=== PATIENT | female | born 1985 | race Caucasian/White ===

== ENCOUNTER 2016-04-03 14:08 | Outpatient (CLI) | payer OTHER | END 2016-04-03 14:09 | disposition home or self-care (01) | DX: Z36 Encounter for antenatal screening of mother (principal) ==

== ENCOUNTER 2016-05-07 22:50 | Outpatient (CLI) | payer OTHER | END 2016-05-07 23:30 | disposition home or self-care (01) | DX: O36.8130 Decreased fetal movements, third trimester, not applicable or unspecified (principal); Z3A.30 30 weeks gestation of pregnancy ==

== ENCOUNTER 2016-06-11 22:16 | Outpatient (CLI) | payer OTHER ==
[2016-06-11] MEDS ORDERED: TERBUTALINE 1 MG/ML VIAL SUBQ SCH (23:00)
[2016-06-11] MEDS ORDERED: TERBUTALINE 1 MG/ML VIAL SUBQ ONE (23:00)
[2016-06-12] MEDS ORDERED: TERBUTALINE 1 MG/ML VIAL SUBQ ONE (01:00)
[2016-06-12] MEDS ORDERED: NIFEdipine ER 90 MG TABLET PO ONE (01:00)
== END 2016-06-12 02:25 | disposition home or self-care (01) ==
DX: O47.00 False labor before 37 completed weeks of gestation, unspecified trimester (principal); Z3A.35 35 weeks gestation of pregnancy
CPT/HCPCS: 81001; 87797; 96372; 99213; A9270

== ENCOUNTER 2016-06-16 15:05 | Outpatient (CLI) | payer OTHER | END 2016-06-16 18:20 | disposition home or self-care (01) | DX: O10.913 Unspecified pre-existing hypertension complicating pregnancy, third trimester (principal); Z3A.36 36 weeks gestation of pregnancy ==

== ENCOUNTER 2016-06-17 08:00 | Outpatient (CLI) | payer OTHER | END 2016-06-17 23:59 | disposition home or self-care (01) | LOC: LAB.R 08:00 | PROVIDERS: ATTEND Obstetrics & Gynecology | DX: Z3A.36 36 weeks gestation of pregnancy (principal) | CPT/HCPCS: 82570; 84156 ==

== ENCOUNTER 2016-06-18 06:13 | Outpatient (CLI) | payer OTHER ==
[2016-06-18] MEDS ORDERED: ACETAMINOPHEN 500 MG TABLET PO PRN (09:30)
[2016-06-18] MEDS ORDERED: ONDANSETRON ODT 4 MG TABLET TL PRN (10:09)
== END 2016-06-18 14:45 | disposition home or self-care (01) ==
DX: O99.89 Other specified diseases and conditions complicating pregnancy, childbirth and the puerperium (principal); R10.9 Unspecified abdominal pain; M54.9 Dorsalgia, unspecified; Z3A.36 36 weeks gestation of pregnancy
CPT/HCPCS: 36415; 76705; 80053; 83615; 84450; 84550; 85025; 85384; 99214; A9270; Q0162

== ENCOUNTER 2016-06-20 13:57 | Outpatient (CLI) | payer OTHER | END 2016-06-20 14:50 | disposition home or self-care (01) | DX: O16.3 Unspecified maternal hypertension, third trimester (principal); Z3A.36 36 weeks gestation of pregnancy ==

== ENCOUNTER 2016-06-27 14:05 | Inpatient (IN) | payer OTHER ==
[2016-06-27 14:41] LABS: BASOPHILS % (AUTO) 0.2 %; EOSINOPHILS % (AUTO) 0.2 %; HCT - HEMATOCRIT 36.9 % (37.0-47.0); HGB - HEMOGLOBIN 12.5 g/dL (12.0-16.0); LYMPHOCYTES # (AUTO) 1.8 10^3/uL (1.5-3.5); LYMPHOCYTES % (AUTO) 13.5 %; MEAN CORPUSCULAR HEMOGLOBIN 28.7 pg (27.0-31.0); MEAN CORPUSCULAR VOLUME 84.4 fL (81.0-99.0); MEAN PLATELET VOLUME 8.5 fL (7.9-10.8); MONOCYTES # (AUTO) 0.7 10^3/uL (0.0-1.0); MONOCYTES % (AUTO) 5.6 %; NEUTROPHILS # (AUTO) 10.8 10^3/uL (1.5-6.6); NEUTROPHILS % (AUTO) 80.5 %; RED BLOOD COUNT 4.37 10^6/uL (4.20-5.40); RED CELL DISTRIBUTION WIDTH 16.3 % (12.0-15.0); UNCORRECTED WHITE BLOOD COUNT 13.4 x10^3/uL; WHITE BLOOD COUNT 13.4 x10^3/uL (4.8-10.8)
[2016-06-27 14:56] LABS: URIC ACID 6.4 mg/dL (2.6-7.2)
[2016-06-27 15:29] LABS: BILIRUBIN,URINE NEGATIVE (NEGATIVE); PH,URINE 6.5 PH (5.0-7.5)
[2016-06-27 15:33] LABS: UA w/ MICROSCOPIC CHARGE YES
[2016-06-27 15:39] LABS: UR CULTURE IF IND NOT INDICATED
[2016-06-27] MEDS ORDERED: ACETAMINOPHEN 325 MG TABLET PO PRN (16:42)
[2016-06-27] MEDS ORDERED: SODIUM CHLORIDE FLUSH 0.9% 10 ML SYRINGE IVP PRN (16:42)
[2016-06-27] MEDS ORDERED: ONDANSETRON 4 MG/2 ML VIAL IVP PRN (16:42)
[2016-06-27] MEDS ORDERED: fentaNYL 100 MCG/2 ML VIAL IVP PRN (16:42)
[2016-06-27] MEDS: LACTATED RINGERS 1,000 ML IV SCH (18:02)
[2016-06-27] MEDS: OXYTOCIN/LACTATED RINGERS 250 ML IV SCH (18:15)
--- NOTE | 2016-06-27 19:19 | HISTORY & PHYSICAL EXAMINATION ---
DATE OF ADMISSION: 06/27/2016 DIAGNOSES: 1. Gestational hypertension; 2. Term (37 weeks 6 days); 3. History of anxiety disorder and borderline personality disorder. HISTORY: The patient is a 30-year-old primigravida at 37 weeks and 6 days gestation based on early ultrasound, who reported headaches, visual changes and increasing edema at her routine clinic appointment with Dr. Taylor. At the time of our clinic evaluation her blood pressure was 140/100 on 2 occasions. She was sent to Labor and Delivery for continued evaluation and her blood pressures remained over 140/90. She reports a frontal headache that is not relieved by Tylenol, right upper quadrant and mid epigastric tenderness, and increasing edema over the last week. She has no recent fevers or illness. There is no history of chronic hypertension and her baseline blood pressure was 122/78. Baseline labs found uric acid mildly elevated for at 6.4 and an elevated urine creatinine protein ratio of 0.3. Baseline labs: Group B strep status negative. Glucose challenge normal at 125. PAST MEDICAL HISTORY: 1. Anxiety disorder. 2. Borderline personality disorder. 3. Distant abnormal Pap result classification uncertain. ALLERGIES: NO KNOWN DRUG ALLERGIES. MEDICATIONS: vitamins with iron. GENETIC/FAMILY HISTORY: No congenital anomalies or inheritable diseases noted. Positive for hypertension, preeclampsia, stroke and type 1 diabetes. SOCIAL HISTORY: . Denies drug, tobacco or alcohol use. REVIEW OF SYSTEMS: CONSTITUTIONAL: The patient reports malaise, no fevers, chills. HEENT: Facial swelling. CARDIOVASCULAR: Negative. PULMONARY: Negative. GI: Negative. NEUROLOGICAL: Visual changes including blurriness. Motor, sensory reported to be intact. SKIN: Negative. PHYSICAL EXAMINATION: GENERAL: The patient lying comfortably in bed in a darkened room. Alert, cooperative. VITAL SIGNS: Temperature 98.1, pulse 101, blood pressure 142/95, respirations 18 , pulse oximetry 98. HEENT: EOMI. Normal; Facial swelling; Supple neck; No thyromegaly; Moist mucous membranes. CARDIAC: Regular. No murmur, no gallop. PULMONARY: No wheezes. LUNGS: Clear to auscultation. ABDOMEN: Generous liver span at or about 10 cm with liver tenderness noted, epigastric tenderness noted. No CVA tenderness or suprapubic tenderness. UTERUS: Appropriate for 37 weeks, approximate weight 6-1/2 to 7 pounds, vertex presentation, a contractile. EXTERNAL GENITALIA: Normal appearance. VAGINA: No blood or discharge Cervix 3 cm., somewhat posterior. Bag of mario intact. heart tracing is category 1, occasional contractions, baseline 130s with accelerations, no worrisome decelerations. Moderate variability. EXTREMITIES: 2+ tibial & finger edema ASSESSMENT: This is a term at nearly 38 weeks with symptoms indicative of gestational hypertension with the beginnings of end organ symptoms including headache, visual changes and liver tenderness. At the current time, her blood pressures do not justify mag sulfate prophylaxis. Induction is indicated. Given her Farris score, Pitocin is a suitable induction modality. PLAN: Discussed gestational hypertension, its natural history and current indications for induction. Risks and benefits were explained to the patient, and she understands that induction carries a slight increase in risk, possibility of failure, possibility of initiating distress. She also understands that gestational hypertension is an unremitting process and can worsen leading to seizures, stroke and poor outcome. The patient consents to Pitocin induction. Epidural will be offered as she approaches the active phase. JOB #: [id number] EXT JOB #:[id number] OUSMANE
[2016-06-28] MEDS: LACTATED RINGERS 1,000 ML IV SCH ×3 (01:53→10:21)
[2016-06-28 02:14] LABS: BASOPHILS % (AUTO) 0.4 %; EOSINOPHILS # (AUTO) 0.1 10^3/uL (0.0-0.7); EOSINOPHILS % (AUTO) 0.7 %; HCT - HEMATOCRIT 36.6 % (37.0-47.0); HGB - HEMOGLOBIN 12.6 g/dL (12.0-16.0); LYMPHOCYTES # (AUTO) 2.2 10^3/uL (1.5-3.5); LYMPHOCYTES % (AUTO) 20.2 %; MEAN CORPUSCULAR HGB CONC 34.5 g/dL (32.0-36.0); MEAN PLATELET VOLUME 8.6 fL (7.9-10.8); MONOCYTES # (AUTO) 0.9 10^3/uL (0.0-1.0); MONOCYTES % (AUTO) 8.1 %; NEUTROPHILS # (AUTO) 7.8 10^3/uL (1.5-6.6); NEUTROPHILS % (AUTO) 70.6 %; RED BLOOD COUNT 4.36 10^6/uL (4.20-5.40); RED CELL DISTRIBUTION WIDTH 16.7 % (12.0-15.0)
[2016-06-28 02:28] LABS: CREATININE 0.6 mg/dL (0.4-1.0); URIC ACID 6.6 mg/dL (2.6-7.2)
--- NOTE | 2016-06-28 05:00 | PROVIDER PROGRESS NOTE ---
Labor Progress Note - Instructions [place]/Slash: -Left hand click circles element as positive or present. -Right hand click slashes element as negative or not present. - Uterine Monitoring Uterine Monitoring Mode: positive: External toco Contraction Frequency (min/apart): q 4 min Contraction Intensity: positive: Moderate Uterine Resting Tone: positive: Soft - Monitoring Monitor Mode: positive: External ultrasound Heart Rate Baseline: 135-140 Heart Rate Variability: positive: Moderate (6-25 bmp) Accelerations: positive: Present, 15x15 Decelerations: positive: None Strip Review: positive: Category I - Vaginal Exam Dilation (in cm): 5 Effacement (%): 100% Station: positive: 0 Cervical Position: positive: Midposition - Labor Progress Note Labor Progress Note/Additional Text: Patient progressing to active phase and uncomfortable now. Epidural requested and she wants to "labor down." I explained that epidural does not provide absolute pain relief and she will have pain during pushing. Her PIH labs and B/ P remain stable.
[2016-06-28] MEDS ORDERED: fent/BUPIV 2 MCG/0.125% 250 ML EP ONE (05:01)
[2016-06-28] MEDS ORDERED: fentaNYL 100 MCG/2 ML VIAL ONE (05:48)
--- NOTE | 2016-06-28 09:10 | PROVIDER PROGRESS NOTE ---
Labor Progress Note - Instructions [place]/Slash: -Left hand click circles element as positive or present. -Right hand click slashes element as negative or not present. - Uterine Monitoring Uterine Monitoring Mode: positive: External toco Contraction Frequency (min/apart): q 3 min Contraction Intensity: positive: Moderate Uterine Resting Tone: positive: Soft - Monitoring Monitor Mode: positive: External ultrasound Heart Rate Variability: positive: Moderate (6-25 bmp) Accelerations: positive: Present, 15x15 Decelerations: positive: None Strip Review: positive: Category I - Vaginal Exam Dilation (in cm): 6 Station: positive: 0 Cervical Position: positive: Midposition (B/P stable; Epidural effective)
[2016-06-28] MEDS: OXYTOCIN/LACTATED RINGERS 250 ML IV SCH (10:22)
[2016-06-28] MEDS: SODIUM CHLORIDE FLUSH 0.9% 10 ML SYRINGE IVP SCH ×2 (10:24→10:25)
--- NOTE | 2016-06-28 11:39 | PROVIDER PROGRESS NOTE ---
Labor Progress Note - Instructions [place]/Slash: -Left hand click circles element as positive or present. -Right hand click slashes element as negative or not present. - Uterine Monitoring Uterine Monitoring Mode: positive: External toco Contraction Frequency (min/apart): q 3 min Contraction Intensity: positive: Moderate Uterine Resting Tone: positive: Soft - Monitoring Monitor Mode: positive: External ultrasound Heart Rate Baseline: 130 Heart Rate Variability: positive: Moderate (6-25 bmp) Accelerations: positive: Present, 15x15 Decelerations: positive: None Strip Review: positive: Category I - Vaginal Exam Dilation (in cm): 8 Station: positive: 1, 2 Cervical Position: positive: Anterior (Progressing)
[2016-06-28] MEDS ORDERED: MINERAL OIL LIGHT 10 ML MC ONE (15:17)
[2016-06-28] MEDS ORDERED: miSOPROStol 200 MCG TABLET ONE (15:17)
[2016-06-28] MEDS ORDERED: LIDOCAINE 1% 50 ML MDV ONE (15:17)
--- NOTE | 2016-06-28 16:06 | PROVIDER PROGRESS NOTE ---
Labor Progress Note - Instructions [place]/Slash: -Left hand click circles element as positive or present. -Right hand click slashes element as negative or not present. - Uterine Monitoring Uterine Monitoring Mode: positive: External toco Contraction Frequency (min/apart): Q 2.5 min Contraction Intensity: positive: Moderate Uterine Resting Tone: positive: Soft - Monitoring Monitor Mode: positive: External ultrasound Heart Rate Baseline: 135 Heart Rate Variability: positive: Moderate (6-25 bmp) Accelerations: positive: Present, 10x10 (=/32 wks) Decelerations: positive: Variable, Intermittent (<50% x20 min) Strip Review: positive: Category I - Vaginal Exam Dilation (in cm): 10 Effacement (%): 100% Station: positive: 3 Cervical Position: positive: Anterior (Dense Epidural; Will begin pushing)
[2016-06-28] MEDS: OXYTOCIN/LACTATED RINGERS 250 ML IV ONE ×2 (16:52→19:05)
[2016-06-28] MEDS ORDERED: WITCH HAZEL/GLYCERIN 1 EACH MED..PAD TOP PRN (17:02)
[2016-06-28] MEDS ORDERED: diphenhydrAMINE 25 MG CAPSULE PO PRN (17:02)
[2016-06-28] MEDS ORDERED: HYDROCORTISONE/PRAMOXINE 10 GM PR PRN (17:02)
--- NOTE | 2016-06-28 17:10 | DELIVERY NOTE ---
Delivery Note - Instructions [place]/Slash: -Left hand click circles element as positive or present. -Right hand click slashes element as negative or not present. - Labor Labor: positive: Induced by oxytocin - Delivery Method Delivery Method: positive: Spontaneous vaginal delivery - Presentation Presentation: positive: Vertex, Compound (R Arm) - Nuchal Cord Nuchal Cord: positive: None - Anesthetic Anesthetic: positive: Lidocaine - 0.5% plain Volume: positive: 5cc - Amniotic Fluid Description Amniotic Fluid Description: positive: Clear - Laceration Laceration: positive: 2nd degree, Vaginal - Suture Suture Type: positive: Vicryl Suture Size: positive: 3-0 - Delivery Outcome Delivery Outcome: positive: Livebirth - : positive: Placed in direct skin contact with mother, Stimulated, Reva used [place] sex: positive: Female - Cord Cord: positive: 3 vessels - Placenta Placenta: positive: Spontaneous (Grade 2) - Estimated Blood Loss Estimated Blood Loss (in cc): 400 - Post Delivery Events Post Delivery Events: positive: Other (Cytotech 800 mcg w Pitocin & Massage)
[2016-06-28] MEDS ORDERED: LACTATED RINGERS 1,000 ML IV SCH (18:00)
[2016-06-28] MEDS: IBUPROFEN 600 MG TABLET PO SCH (18:16)
[2016-06-28] MEDS: HYDROcod/ACETAM 5/325 MG TABLET PO PRN (18:17)
[2016-06-29 05:58] LABS: BASOPHILS % (AUTO) 0.2 %; EOSINOPHILS # (AUTO) 0.1 10^3/uL (0.0-0.7); EOSINOPHILS % (AUTO) 0.7 %; HCT - HEMATOCRIT 33.2 % (37.0-47.0); LYMPHOCYTES # (AUTO) 2.3 10^3/uL (1.5-3.5); LYMPHOCYTES % (AUTO) 18.7 %; MEAN CORPUSCULAR HEMOGLOBIN 28.4 pg (27.0-31.0); MEAN CORPUSCULAR VOLUME 85.8 fL (81.0-99.0); MEAN PLATELET VOLUME 8.4 fL (7.9-10.8); MONOCYTES % (AUTO) 8.2 %; NEUTROPHILS # (AUTO) 8.9 10^3/uL (1.5-6.6); NEUTROPHILS % (AUTO) 72.2 %; RED BLOOD COUNT 3.87 10^6/uL (4.20-5.40); RED CELL DISTRIBUTION WIDTH 16.4 % (12.0-15.0); UNCORRECTED WHITE BLOOD COUNT 12.3 x10^3/uL; WHITE BLOOD COUNT 12.3 x10^3/uL (4.8-10.8)
--- NOTE | 2016-06-29 06:45 | PROCEDURE REPORT ---
DATE OF PROCEDURE: 06/28/2016 00:00:00 PRE-DELIVERY DIAGNOSES 1. Gestational hypertension. 2. Pitocin induction. 3. Term , 38 weeks 0 days. 4. Maternal Rh neg POST-DELIVERY DIAGNOSES 1. Gestational hypertension. 2. Pitocin induction. 3. Term , 38 weeks 0 days. 4. Right arm compound presentation. 5. Macrosomia 6. Successful vaginal delivery. PROCEDURES: Manually assisted vaginal delivery over an intact perineum, minor midline vaginal laceration (second degree repair). TAB MACHINE OPERATOR: Grover Floyd MD, FACOG, FICS. ANESTHESIA: Joni Boone, certified nurse county or city auditor, epidural. Dr. Floyd, 5 mL of lidocaine 2% local. COMPLICATIONS: None. BLOOD LOSS: 400 mL. FINDINGS: At 1641 hours, a living male was born weighing 9 lbs 10 oz and scoring Apgars of 8/9. There was no congenital anomalies or trauma observed. responded to stimulation. Placenta was spontaneously delivered approximately 5 minutes after. Inspection found it to be a grade 2 and completely intact. Cord configuration was 3-vessel and there was no cord entanglement. At the time of delivery, a right arm compound presentation was discovered. It resolved without difficulty. TECHNIQUE: The patient achieved completion at or about 1400 and was allowed to labor down during most of the afternoon, enjoying a dense epidural. Throughout, heart tracing remained category 1. The patient reported an urge to push and pushed with good effort and well coached by nursing and her . She brought the head to the perineum. The head was atraumatically delivered. There was no nuchal cord and the fetus experienced external rotation clockwise. There was a right hand noted impeding delivery of the shoulders, but this spontaneously resolved. To facilitate shoulder delivery, the hips were flexed, but this was not a true shoulder dystocia. was placed on the maternal abdomen and stimulated. Cord was doubly clamped and transected. Cord blood sample was sent and a loop of cord was saved in case of need for cord pH/gases. The responded well and cord gases were not required. The cervix was intact and for the majority, the vagina was intact. There was 3 cm in length, 1 cm depth midline laceration from the shoulder delivery noted. The external anal sphincter and rectum were not involved. This small rift was closed with a running stitch of 3-0 Vicryl. Shortly after repair of the vaginal laceration, the placenta was delivered intact. Initially there was brisk bleeding, which prompted us to begin uterine massage and Pitocin drip. The bleeding seems slow to quang and 800 mcg of Cytotec was placed per rectum. The uterine interior was examined by palpation. There were no fragments. It was confirmed that the placenta was intact by inspection. Cervix was visualized completely intact as well. The uterus responded well to Cytotec. Mother, father and child all bonded well. At the termination of the procedure, all sponge and needles were accounted for. JOB #: [id number] EXT JOB #:[id number] [place]
[2016-06-29] MEDS: IBUPROFEN 600 MG TABLET PO SCH ×2 (08:44→17:51)
[2016-06-29] MEDS: HYDROcod/ACETAM 5/325 MG TABLET PO PRN ×2 (08:45→17:51)
--- NOTE | 2016-06-29 08:51 | PROVIDER PROGRESS NOTE ---
Subjective - Prog Note Date Prog Note Date: 06/29/16 - Subjective Pt reports feeling: Improved Subjective: Pt feels well but fatigued. Discussed Rh neg blood type and her declining 28w Rhogam. Rh neg. Patient has had SAB prior to 8 wks. Call into lab for explanations of weak Du pos result. Objective - Vital Signs/Intake & Output Vital Signs: Vital Signs x48h Temp Pulse Resp BP 06/29/16 02:00 98.0 F 94 18 128/82 H Intake & Output: Intake & Output 06/26/16 06/27/16 06/28/16 06/29/16 23:59 23:59 23:59 23:59 Intake Total 3398 1000 Output Total 650 1450 1300 Balance -650 1948 -300 - Lab Results Fish Bones: 06/29/16 05:51 06/28/16 02:04 Other Labs: Lab Results x24hrs 06/29/16 06/28/16 Range/Units 05:51 20:38 WBC 12.3 H (4.8-10.8) x10^3/uL RBC 3.87 L (4.20-5.40) 10^6/uL Hgb 11.0 L (12.0-16.0) g/dL Hct 33.2 L (37.0-47.0) % MCV 85.8 (81.0-99.0) fL MCH 28.4 (27.0-31.0) pg MCHC 33.0 (32.0-36.0) g/dL RDW 16.4 H (12.0-15.0) % Plt Count 159 (130-450) 10^3/uL MPV 8.4 (7.9-10.8) fL Neut # 8.9 H (1.5-6.6) 10^3/uL Lymph # 2.3 (1.5-3.5) 10^3/uL Cuming # 1.0 (0.0-1.0) 10^3/uL Eos # 0.1 (0.0-0.7) 10^3/uL Baso # 0.0 (0.0-0.1) 10^3/uL Absolute Nucleated RBC 0.01 x10^3/uL Nucleated RBCs 0.0 /100WBC Blood Type O NEGATIVE Weak D (Du) WEAK-D NEGATIVE Maternal Bleed NEGATIVE (NEGATIVE) Physical Exam - Physical Exam General: positive: No acute distress HEENT: positive: Moist mucous membranes Neck: positive: Supple w/out meningeal sx Cardiac: positive: Regular Rate, Regular Rhythm Abdomen: positive: Normal Bowel sounds Female : positive: Vaginal Discharge (Min rubra by nursing) Extremities: positive: Other (mild pedal edema) Skin: positive: Warm and dry Neurologic: positive: Alert and Oriented X 3, Normal Sensation, Normal Speech Assessment/Plan - Assessment/Plan Assessment: Will verfy lab results then determine if Rhogam should be offered. Rhogam generally has 72 H window. Otherwise BP stable and pt recovering.
[2016-06-30] MEDS: HYDROcod/ACETAM 5/325 MG TABLET PO PRN ×2 (03:43→09:19)
--- NOTE | 2016-06-30 08:20 | Discharge Plan ---
Discharge Plan Disposition: 01 Home, Self Care Condition: Good Diet: Regular Activity Restrictions: No Restrictions Shower Restrictions: No Driving Restrictions: No Weight Bearing: Full Weight Additional Instructions or Follow Up instructions: Review Post Depression; Nursing Instructions No Smoking: If you smoke, Please STOP! Call for help. Follow-up with: Grover Taylor MD [Provider Admit Priv/Credential] -
[2016-06-30] MEDS: IBUPROFEN 600 MG TABLET PO SCH ×6 (09:19→21:15)
[2016-06-30] MEDS ORDERED: SERTRALINE 50 MG TABLET PO SCH (12:00)
--- NOTE | 2016-06-30 12:16 | DISCHARGE SUMMARY ---
DATE OF ADMISSION: 06/27/2016 DATE OF DISCHARGE: FINAL DIAGNOSES 1. Gestational hypertension. 2. Term at 38 weeks 0 days. 3. History of anxiety disorder and depression. 4. Compound right hand presentation. 5. Macrosomic fetus. 6. Induction of labor. PROCEDURE: Manually vacuum-assisted vaginal delivery of a living female . COMPLICATIONS: None. HISTORY: The patient is a 30-year-old primigravida at 37 weeks and 6 days gestation who had frontal headaches, visual changes and increasing edema. Her blood pressure was documented to be over 140/90 on several occasions. Physical examination found some mild liver tenderness, but no elevated liver enzymes. Baseline labs were essentially normal except mildly elevated uric acid of 6.4 and an elevated urine creatinine protein ratio of 0.3. Reference typewritten H and P. The patient was admitted and prepared for induction. Cervix was 3 cm dilated and therefore Pitocin drip was begun and titrated to an effective contraction pattern. On hospital day #2 at roughly 4:30 in the morning, her membranes were artificially ruptured and she was given an epidural. The patient was allowed to labor down and throughout her strip was category 1. Reference multiple progress notes. At 1641 hours on hospital day 2, a living male infant was born weighing 9 pounds 10 ounces scoring Apgars of 8/9. Placenta was delivered intact with 3- vessel cord. There was a minor midline laceration that was repaired with Vicryl and total blood loss was 400. Reference type written delivery note. Post-delivery, the patient did well, recovering self-care and care activities. She put good effort into nursing and became somewhat frustrated when infant did not nurse as well as she expected. She was given intensive nursing education by the labor and delivery staff. We had a discussion about expectations, adjustments to motherhood and depression. The patient admits that she feels vulnerable to depression and would like some help in that regard. We discussed the use of antidepressants, which she has been on in the past. Zoloft 50 mg daily was chosen. will monitor her behavior, as well as the patient is acutely aware of her behavior. She has no current violent ideation. She does see a therapist and is scheduled for a visit on 07/11. FOLLOWUP: The patient will have a followup in [address] Taylor for both a blood pressure check and an assessment of adapting to the stresses of . She will have the routine post-delivery followup in 6 weeks. The patient's intends to take off as much work time as possible to support her in the next 2 weeks. DISCHARGE MEDICATIONS 1. vitamins and iron. 2. Colace. 3. Motrin. 4. Zoloft 50 mg daily. JOB #: [id number] EXT JOB #:[id number] [facility]
[2016-06-30] MEDS ORDERED: RHO(D) IMMUNE GLOBULIN 300 MCG SYRINGE IM SCH (17:00)
[2016-06-30 22:17] VITALS: BP 131/64
--- NOTE | 2016-06-30 22:33 | Labor Flowsheet ---
Labor Flowsheet Datetime Report Generated by CPN: 06/30/2016 22:32 Datetime: 06/30/2016 22:16 VITAL SIGNS NBP Sys/Crystal/Mean (mmHg): 131 : 64 : 81 Pulse: 85 LaborFlag: Labor Datetime: 06/30/2016 07:29 SpO2 (%): 99 Datetime: 06/28/2016 16:41 UTERINE ACTIVITY Monitor Mode: External Frequency (min): 2-3 Quality: Strong Duration (sec): 60-90 Pattern: Normal: <= 5 Contractions in 10 Minutes Resting Tone (Palpate): Relaxed ASSESSMENT A Monitor Mode: External US FHR Baseline Rate : unable to determine baseline. Variability: Moderate 6-25 bpm Comments: Pt pushing at this time. Dr. Floyd present. Baby girl delivered at 1641. Datetime: 06/28/2016 16:30 Accelerations: 15X15 Decelerations: Variable Category: Category II Datetime: 06/28/2016 16:05 STAGE 2 Pushing: Coached on Pushing Pushing Position: Pushing with Contractions; Pushing Lithotomy Datetime: 06/28/2016 16:00 VAGINAL EXAM Dilatation (cm): 10.0 Effacement (%): 100 Station: 3 Exam by: Dr. Floyd Datetime: 06/28/2016 14:20 Vaginal Bleeding: Normal Show Cervix, Consistency: Soft Cervix, Position: Midposition Vaginal Exam Comments: Anterior lip Datetime: 06/28/2016 12:30 Monitor Interventions for FHR: 140 Datetime: 06/28/2016 12:00 FHR Baseline Changes: No Baseline Change Datetime: 06/28/2016 11:30 Stage of : Labor Membrane Status: Ruptured Oxygen Method: Room Air Provider Reviewed Strip: Yes Strip Reviewed by: Dr. Floyd ANESTHESIA Anesthesia Plans: Epidural Anesthesia Interview: E Anesthesia Level Check: T10- Umbilicus Datetime: 06/28/2016 08:30 Patient Position/Activity: Left Tilt I/O Interventions: Clear Liquids Given TEACHING Instructional Method: Verbal Datetime: 06/28/2016 07:30 Respirations: 16 Temperature (C): 36.7 Temperature Route: Oral Pitocin Checklist: At Least 1 Acceleration of 15 bpm x 15 Seconds in 30 Minutes or Adequate Variabi lity; No More than 1 Late Deceleration Occurred in Past 30 Minutes; No More than 2 Variable Decelerat ions > 60 Seconds in Duration and decreasing >60 bpm in 30 minutes; No More than 5 Uterine Contractio ns in 10 Minutes for any 20 Minute Interval; Uterus Palpates Soft between Contractions Plan of Care: Plan of Care Discussed Datetime: 06/28/2016 07:00 PAIN Pain Scale: 0 Pain Coping: Sleeping Datetime: 06/28/2016 06:38 Monitor Interventions for UA: [place] Adjusted Datetime: 06/28/2016 06:01 Pain Relief Measures: Epidural Given MATERNAL ASSESSMENT Level of Consciousness: Fully Conscious Headache: Denies Nausea/Vomiting: Denies RUQ Epigastric Pain: Denies Datetime: 06/28/2016 05:36 Epidural Procedure Other: Pump Started Datetime: 06/28/2016 05:24 Epidural Procedure: Loading Dose Datetime: 06/28/2016 05:22 Epidural Positioning: Sitting Datetime: 06/28/2016 05:15 Patient Care Comments: sitting for epidural Datetime: 06/28/2016 05:11 PROCEDURE TIME OUT Procedure Verify: Correct Patient Identity; Correct Side and Site are Marked; Accurate Procedure Co nsent Form; Agreement on Procedure to be Done; Correct Patient Position; Safety Precautions Based on Patient History or Medication Use Datetime: 06/28/2016 04:45 Pain Presence: Intermittent Pain Type: Contraction Pain Location: Abdomen Membranes Rupture Method: Artificial Amniotic Fluid Color: Clear Amniotic Fluid Amount: Small Amniotic Fluid Odor: Normal COMMUNICATION Communication: Provider at Bedside Datetime: 06/28/2016 04:40 PATIENT CARE IV/Blood Work: IV Bolus Started Datetime: 06/28/2016 04:30 MEDICATIONS Pitocin (milliunits): Increased to @ increased to 20@0430 Datetime: 06/28/2016 02:25 Analgesics/Sedatives: Fentanyl (mcg) @ 50mcg@0225 Datetime: 06/28/2016 02:08 Comfort Measures: Breathing/Relaxation; Coaching Datetime: 06/27/2016 21:50 Communication Comments: Dr. Floyd called in to check on pt. status Datetime: 06/27/2016 20:15 Pain Assessment Comments: resting quietly Datetime: 06/27/2016 19:30 Pain Goal: 5 DTR's/Clonus: DTRs 2+; DTRs 3+; No Clonus Breath Sounds, Left: Clear and Equal Breath Sounds, Right: Clear and Equal Pain Management: IV Narcotics
== END 2016-06-30 22:25 | disposition home or self-care (01) | DRG 774 ==
LOC: WFO 14:05 → OB 14:06 → WFO 16:59 → OB 17:00
PROVIDERS: ADMIT Obstetrics & Gynecology; ATTEND Obstetrics & Gynecology
PROC: 3E033VJ Introduction of Other Hormone into Peripheral Vein, Percutaneous Approach (ICD-10-PCS; 2016-06-27)
PROC: 10E0XZZ Delivery of Products of Conception, External Approach (ICD-10-PCS; principal; 2016-06-28)
PROC: 0KQM0ZZ Repair Perineum Muscle, Open Approach (ICD-10-PCS; 2016-06-28)
PROC: 10907ZC Drainage of Amniotic Fluid, Therapeutic from Products of Conception, Via Natural or Artificial Opening (ICD-10-PCS; 2016-06-28)
DX: O13.4 Gestational [pregnancy-induced] hypertension without significant proteinuria, complicating childbirth (principal); O72.1 Other immediate postpartum hemorrhage; O32.6XX0 Maternal care for compound presentation, not applicable or unspecified; O36.63X0 Maternal care for excessive fetal growth, third trimester, not applicable or unspecified; O70.1 Second degree perineal laceration during delivery; O99.344 Other mental disorders complicating childbirth; F41.9 Anxiety disorder, unspecified; F60.3 Borderline personality disorder; F32.9 Major depressive disorder, single episode, unspecified; O26.893 Other specified pregnancy related conditions, third trimester; Z3A.37 37 weeks gestation of pregnancy; Z37.0 Single live birth; Z67.41 Type O blood, Rh negative
CPT/HCPCS: 36415; 51701; 81001; 81003; 82565; 82570; 83033; 83615; 84156; 84450; 84550; 85025; 86900; 86901; 87086; 99213

== ENCOUNTER 2016-07-03 13:12 | Emergency (ER) | payer OTHER ==
[2016-07-03] MEDS ORDERED: IBUPROFEN 800 MG TABLET PO STA (13:59)
[2016-07-03] MEDS ORDERED: IBUPROFEN 800 MG TABLET PO ONE (14:14)
[2016-07-03] MEDS ORDERED: IOPAMIDOL-300 100 ML VIAL IVP ONE (14:50)
== END 2016-07-03 15:45 | disposition home or self-care (01) ==
DX: O99.89 Other specified diseases and conditions complicating pregnancy, childbirth and the puerperium (principal); R09.1 Pleurisy; R03.0 Elevated blood-pressure reading, without diagnosis of hypertension
CPT/HCPCS: 36415; 71275; 80053; 83690; 84484; 85025; 93005; 93010; 99283; 99284; A9270; Q9967